=== PATIENT | male | born 1980 | race Caucasian/White ===

== ENCOUNTER 2018-04-15 10:42 | Emergency (ER) | payer MEDICAID, OTHER ==
[~2018-04-15] VITALS: Ht 182.9 cm; Wt 116.0 kg
[2018-04-15 10:54] VITALS: BP 147/109
[2018-04-15] MEDS ORDERED: ketorolac tromethamine 15mg/ml inj. IM ONE (12:50)
[2018-04-15] MEDS ORDERED: ketorolac trometh inj. 60 MG/2 ML VIAL IM ONE (12:50)
[2018-04-15] MEDS ORDERED: orphenadrine citrate 60mg/2ml inj. IM ONE (12:50)
[2018-04-15] MEDS ORDERED: CYCL-1 PO (12:58)
== END 2018-04-15 13:28 | disposition home or self-care (01) ==
LOC: ER 10:43
DX: M54.42 Lumbago with sciatica, left side (principal); M54.41 Lumbago with sciatica, right side; M25.561 Pain in right knee; Z88.0 Allergy status to penicillin; Z79.899 Other long term (current) drug therapy
CPT/HCPCS: 96372; 99284; J1885; J2360